=== PATIENT | female | born 1940 ===

== ENCOUNTER 2023-01-04 06:00 | Day surgery (SDC) | payer OTHER ==
[~2023-01-04] VITALS: Ht 157.5 cm; Wt 61.2 kg
[~2023-01-04 06:00] MED LIST: ACTOS45 MG PO; COZAAR100 MG PO; FENOFI; JANUMET XR 1001 EACH PO; SYNTH
== END 2023-01-04 13:10 | disposition home or self-care (01) ==
LOC: CIR.AMB 06:00
PROVIDERS: ATTEND Obstetrics & Gynecology
DX: N84.0 Polyp of corpus uteri (principal); N95.0 Postmenopausal bleeding; Z88.6 Allergy status to analgesic agent; I10 Essential (primary) hypertension; E78.00 Pure hypercholesterolemia, unspecified